=== PATIENT | female | born 1975 | race American Indian/Alaskan Native ===

== ENCOUNTER 2020-05-02 15:11 | Emergency (ER) | payer MEDICAID ==
[2020-05-02 15:29] VITALS: BP 156/90
--- NOTE | 2020-05-02 17:19 | Emergency Department Report ---
ED General Adult HPI - General Chief complaint: Dental/Oral Stated complaint: GUM/TEETH PAIN Time Seen by Provider: 05/02/20 16:20 Source: patient Mode of arrival: Ambulatory Limitations: No Limitations - History of Present Illness Initial comments: 44-year-old -[place] female patient with history of hypertension presents with complaints of left upper dental pain x2 days. She rates her pain as a 6/10 in severity and states ibuprofen 800 does help some. She also reports facial swelling, but denies any fever/chills/sweats, difficulty opening her jaw, or dysphagia. She has not seen a dental specialist yet per pt Severity scale (0 -10): 7 - Related Data Home Medications Medication Instructions Recorded Confirmed Last Taken Amlodipine Besylate 5 mg PO DAILY 10/23/15 10/23/15 1 Day Ago ~10/22/15 5 Previous Rx's Medication Instructions Recorded Last Taken Type Acetaminophen/Codeine [Tylenol 1 tab PO Q8H PRN #10 tab 05/02/20 Unknown Rx /Codeine # 3 tab] Clindamycin [Clindamycin CAP] 300 mg PO Q6H 10 Days #40 capsule 05/02/20 Unknown Rx Ibuprofen [Motrin 800 MG tab] 800 mg PO Q8HR PRN #21 tablet 05/02/20 Unknown Rx Allergies Allergy/AdvReac Type Severity Reaction Status Date / Time No Known Allergies Allergy Verified 10/23/15 19:23 ED Review of Systems ROS: Stated complaint: GUM/TEETH PAIN Other details as noted in HPI Constitutional: denies: chills, diaphoresis, fever, malaise ENT: dental pain. denies: ear pain, throat pain Respiratory: denies: cough, shortness of breath Skin: denies: change in color Hematological/Lymphatic: denies: swollen glands ED Past Medical Hx - Past Medical History Previous Medical History?: Yes Hx Hypertension: Yes - Surgical History Past Surgical History?: Yes Additional Surgical History: breast reduction - Social History Smoking Status: Current Every Day Smoker - Medications Home Medications: Home Medications Medication Instructions Recorded Confirmed Last Taken Type Amlodipine Besylate 5 mg PO DAILY 10/23/15 10/23/15 1 Day Ago History ~10/22/15 5 Acetaminophen/Codeine [Tylenol 1 tab PO Q8H PRN #10 tab 05/02/20 Unknown Rx /Codeine # 3 tab] Clindamycin [Clindamycin CAP] 300 mg PO Q6H 10 Days #40 capsule 05/02/20 Unknown Rx Ibuprofen [Motrin 800 MG tab] 800 mg PO Q8HR PRN #21 tablet 05/02/20 Unknown Rx ED Physical Exam - General Limitations: No Limitations General appearance: alert, in no apparent distress - Head Head exam: Present: atraumatic, normocephalic - Eye Eye exam: Present: normal appearance. Absent: scleral icterus - Expanded ENT Exam Expanded Teeth exam: Absent: fractured tooth # 1 - Dental Tenderness (With mild erythema no; obvious abscess is noted; there is mild overlying facial swelling without erythema or cellulitic change) - Respiratory Respiratory exam: Absent: respiratory distress - Cardiovascular Cardiovascular Exam: Present: regular rate - Extremities Exam Extremities exam: Present: full ROM - Back Exam Back exam: Present: normal inspection - Neurological Exam Neurological exam: Present: alert, oriented X3, normal gait - Psychiatric Psychiatric exam: Present: normal affect, normal mood - Skin Skin exam: Present: warm, dry, intact, normal color. Absent: rash ED Course Vital Signs 05/02/20 15:28 Temperature 98.6 F Pulse Rate 74 Respiratory 16 Rate Blood Pressure 156/90 [Right] O2 Sat by Pulse 99 Oximetry ED Medical Decision Making - Radiology Data Radiology results: report reviewed - Medical Decision Making 44-year-old -M[place] female patient with history of hypertension presents with complaints of left upper dental pain x2 days. She rates her pain as a 6/10 in severity and states ibuprofen 800 does help some. She also reports facial swelling, but denies any fever/chills/sweats, difficulty opening her jaw, or dysphagia. She has not seen a dental specialist yet per pt Dental infection with mild facial swelling noted on exam. No cellulitic changes noted. Patient vitals are normal and she is stable for discharge home. Prescription for clindamycin given. Patient to follow-up with dental specialist within 24 to 48 hours, dental specialist list provided to patient. Strict return precautions were discussed in detail with patient who verbalized understanding. Critical care attestation.: If time is entered above; I have spent that time in minutes in the direct care of this critically ill patient, excluding procedure time. ED Disposition Clinical Impression: Dental infection Disposition: DC- TO HOME OR SELFCARE Is pt being admited?: No Condition: Stable Instructions: Dental Abscess Prescriptions: Clindamycin [Clindamycin CAP] 300 mg PO Q6H 10 Days #40 capsule Ibuprofen [Motrin 800 MG tab] 800 mg PO Q8HR PRN #21 tablet PRN Reason: Pain, Moderate (4-6) Acetaminophen/Codeine [Tylenol /Codeine # 3 tab] 1 tab PO Q8H PRN #10 tab PRN Reason: Pain , Severe (7-10) Forms: Work/School Release Form(ED)
== END 2020-05-02 17:58 | disposition home or self-care (01) ==
LOC: ED 15:11
DX: K04.7 Periapical abscess without sinus (principal); I10 Essential (primary) hypertension; F17.200 Nicotine dependence, unspecified, uncomplicated; Z98.890 Other specified postprocedural states; Z79.1 Long term (current) use of non-steroidal anti-inflammatories (NSAID); Z79.899 Other long term (current) drug therapy
CPT/HCPCS: 99282

== ENCOUNTER 2021-04-09 19:37 | Emergency (ER) | payer MEDICAID ==
[2021-04-09 20:02] VITALS: BP 157/91
[2021-04-09 20:29] LABS: Basophils # (Auto) 0.1 K/mm3 (0.0-0.1); Basophils % (Auto) 1.1 % (0.0-1.8); Eosinophils # (Auto) 0.3 K/mm3 (0.0-0.4); Eosinophils % (Auto) 4.4 % (0.0-4.3); Hemoglobin 11.9 gm/dl (10.1-14.3); Lymphocytes # (Auto) 3.2 K/mm3 (1.2-5.4); Lymphocytes % (Auto) 44.8 % (13.4-35.0); Mean Corpuscular HGB Conc 33 % (30-34); Mean Corpuscular Volume 93 fl (79-97); Monocytes # (Auto) 0.5 K/mm3 (0.0-0.8); Monocytes % (Auto) 7.4 % (0.0-7.3); Platelet Count 310 K/mm3 (140-440); Red Blood Count 3.89 M/mm3 (3.65-5.03); Red Cell Distribution Width 14.8 % (13.2-15.2)
--- NOTE | 2021-04-09 20:50 | XRay Report ---
CHEST 2 VIEWS INDICATION / CLINICAL INFORMATION: Chest Pain. COMPARISON: None available. FINDINGS: SUPPORT DEVICES: None. HEART / MEDIASTINUM: No significant abnormality. LUNGS / PLEURA: No significant pulmonary or pleural abnormality. No pneumothorax. ADDITIONAL FINDINGS: No significant additional findings. IMPRESSION: 1. No acute findings. Signer Name: Aureliano Hoyt MD Signed: 04/09/2021 8:45 PM Workstation Name: [id number]
[2021-04-09 20:52] LABS: Alanine Aminotransferase 11 units/L (7-56); Albumin 4.1 g/dL (3.9-5); Blood Urea Nitrogen 16 mg/dL (7-17); Calcium 9.1 mg/dL (8.4-10.2); Hemolysis Index 16
[2021-04-09 21:06] LABS: BUN/Creatinine Ratio 27
--- NOTE | 2021-04-10 11:58 | Electrocardiograph Report ---
[facility] Test Date: 2021-04-09 Test Time: 19:52:43 Pat Name: LINN SOLANO Department: Room: Gender: F [employer]: KIMBERLY : 1975 Requested By: DIO CHRISTINA Order Number: [id number] Reading MD: Jen Mac Measurements Intervals [place] Rate: 64 P: 54 CA: 147 QRS: 40 QRSD: 66 T: 46 QT: 403 QTc: 417 Interpretive Statements Sinus rhythm No previous ECG available for comparison Electronically Signed On 04-10-2021 11:57:57 EST by Jen Mac
== END 2021-04-09 22:15 | disposition home or self-care (01) ==
LOC: ED 19:37
DX: R07.9 Chest pain, unspecified (principal); R51.9 Headache, unspecified; Z53.21 Procedure and treatment not carried out due to patient leaving prior to being seen by health care provider
CPT/HCPCS: 36415; 71046; 80053; 84484; 85025; 93005